=== PATIENT | male | born 1940 | race Caucasian/White ===

== ENCOUNTER 2017-06-07 10:57 | Inpatient (IN) | payer OTHER ==
[~2017-06-07] VITALS: Ht 165.1 cm; Wt 81.6 kg
[~2017-06-07 10:57] MED LIST: ASA81 MG; DIOVAN HCT 160-1 TAB; LIPITOR20 MG; OMEPRAZOLE20 MG; SYNTHROID175 MCG; TOPROL XL50 M1 PO; XALATAN; XANAX XR0.5 MG; XARELTO10 MG; ZYRTEC10 MG PO
[2017-06-07] MEDS ORDERED: PROTONIX40 MG (11:10)
[2017-06-07] MEDS ORDERED: LEVOTHYROXINE (11:14)
== END 2017-06-10 10:34 | disposition home or self-care (01) | DRG 390 ==
LOC: ER 10:57 → SURH 19:29 → SEC-K 19:29 → MEDJ 23:13 → SURH 06-08 01:52
PROC: 8E0ZXY6 Isolation (ICD-10-PCS; principal; 2017-06-07)
PROC: BW21Y0Z Computerized Tomography (CT Scan) of Abdomen and Pelvis using Other Contrast, Unenhanced and Enhanced (ICD-10-PCS; 2017-06-07)
DX: K56.690 Other partial intestinal obstruction (principal); K29.00 Acute gastritis without bleeding; I48.0 Paroxysmal atrial fibrillation; Z79.01 Long term (current) use of anticoagulants; K44.9 Diaphragmatic hernia without obstruction or gangrene; K21.9 Gastro-esophageal reflux disease without esophagitis; K52.89 Other specified noninfective gastroenteritis and colitis; I10 Essential (primary) hypertension

== ENCOUNTER → 2018-04-17 | Outpatient (CLI) | payer OTHER ==
[~2018-04-17] MED LIST changes: +LEVOTHYROXINE; +PROTONIX40 MG
== END | disposition home or self-care (01) ==
LOC: TOM 09:45
DX: C34.91 Malignant neoplasm of unspecified part of right bronchus or lung (principal); R10.9 Unspecified abdominal pain; J44.9 Chronic obstructive pulmonary disease, unspecified; D69.0 Allergic purpura

== ENCOUNTER → 2018-05-14 | Outpatient (CLI) | payer OTHER | END | disposition home or self-care (01) | LOC: NUCLEAR 09:00 | DX: D72.828 Other elevated white blood cell count (principal); C80.1 Malignant (primary) neoplasm, unspecified | CPT/HCPCS: 78816; 93880; A9552 ==

== ENCOUNTER → 2018-07-22 | Outpatient (CLI) | payer OTHER | END | disposition home or self-care (01) | LOC: MAMO-SONO 11:41 | DX: R10.84 Generalized abdominal pain (principal); N18.3 Chronic kidney disease, stage 3 (moderate); R31.29 Other microscopic hematuria ==

== ENCOUNTER 2019-01-20 15:20 | Emergency (ER) | payer OTHER ==
[~2019-01-20] VITALS: Ht 167.6 cm; Wt 81.6 kg
[2019-01-20] MEDS ORDERED: LOSARTAN POTASS50 MG PO (16:23)
== END 2019-01-20 21:50 | disposition home or self-care (01) ==
LOC: ER 15:20
DX: R10.12 Left upper quadrant pain (principal); R10.32 Left lower quadrant pain

== ENCOUNTER 2019-03-21 07:28 | Emergency (ER) | payer OTHER ==
[~2019-03-21] VITALS: Ht 167.6 cm; Wt 88.5 kg
[~2019-03-21 07:28] MED LIST changes: +LOSARTAN POTASS50 MG PO
[2019-03-21] MEDS ORDERED: TOPROL XL100 M1 PO (07:46)
[2019-03-21] MEDS ORDERED: ULORIC40 MG PO (07:47)
[2019-03-21] MEDS ORDERED: PREGNENOLONE5 GM MC (07:47)
[2019-03-21] MEDS ORDERED: PEPCID AC20 MG PO (10:51)
[2019-03-21] MEDS ORDERED: LEVSIN/SL0.125 MG SL (10:51)
== END 2019-03-21 11:25 | disposition home or self-care (01) ==
LOC: ER 07:28
DX: K29.70 Gastritis, unspecified, without bleeding (principal)

== ENCOUNTER 2019-03-27 10:35 | Outpatient (CLI) | payer OTHER ==
[~2019-03-27 10:35] MED LIST changes: +LEVSIN/SL0.125 MG SL; +PEPCID AC20 MG PO; +PREGNENOLONE5 GM MC; +TOPROL XL100 M1 PO; +ULORIC40 MG PO
== END 2019-03-27 10:36 | disposition home or self-care (01) ==
LOC: SONOGRAMA 10:35
DX: R10.84 Generalized abdominal pain (principal)

== ENCOUNTER 2019-04-03 09:44 | Outpatient (CLI) | payer OTHER | END 2019-04-03 10:51 | disposition home or self-care (01) | LOC: NUCLEAR 09:44 | DX: K80.18 Calculus of gallbladder with other cholecystitis without obstruction (principal) | CPT/HCPCS: 78227; A9537 ==

== ENCOUNTER 2020-09-24 15:19 | Outpatient (CLI) | payer OTHER | END 2020-09-24 15:24 | disposition home or self-care (01) | LOC: RAD 15:19 | DX: I11.9 Hypertensive heart disease without heart failure (principal); H02.60 Xanthelasma of unspecified eye, unspecified eyelid ==

== ENCOUNTER 2024-04-19 11:13 | Emergency (ER) | payer OTHER ==
[~2024-04-19] VITALS: Ht 165.1 cm; Wt 79.4 kg
[2024-04-19 12:53] LABS: HEMATOCRIT 32.6 % (39.0-48.0); MEAN CELL VOLUME 76.3 fL (80.0-100.00); MEAN CORPUSCULAR HEMOGLOBIN 23.5 pg (27.00-32.0); MEAN CORPUSCULAR HGB CONC 30.8 g/dl (32.0-36.0); PLATELET COUNT 313 K/uL (150-450); RED BLOOD COUNT 4.28 M/uL (4.00-6.00); RED CELL DISTRIBUTION WIDTH 21.7 % (11.5-14.5)
[2024-04-19 13:16] LABS: ALBUMIN 3.1 gm/dL (3.4-5.0); BILIRUBIN TOTAL 0.65 mg/dL (0.3-1.2); CALCIUM 10.2 mg/dL (8.5-10.1); CREATININE SERUM 1.6 mg/dL (0.70-1.30); GFR 41.29; GLOBULINA 3.9 G/DL (2.4-3.5); POTASSIUM 5.29 mEq/L (3.5-5.1)
[2024-04-19 13:18] LABS: INR 1.4; PROTHROMBIN TIME 14.9 SECONDS (9.0-11.5)
[2024-04-19 13:18] LABS: D DIMER 0.29 MG/L; PARTIAL THROMBOPLASTIN TIME 30.8 SECONDS (22.0-34.0)
== END 2024-04-19 14:00 | disposition home or self-care (01) ==
LOC: ER 11:13
PROVIDERS: General Practice
DX: I80.9 Phlebitis and thrombophlebitis of unspecified site (principal); Z88.0 Allergy status to penicillin; Z88.5 Allergy status to narcotic agent

== ENCOUNTER 2024-04-21 15:39 | Inpatient (IN) | payer OTHER ==
[~2024-04-21] VITALS: Ht 165.1 cm; Wt 88.5 kg
--- NOTE | 2024-04-21 15:55 | NUR ---
PTE ALERTA Y ORIENTADO X3, REFIERE VEINR POR DOLOR EN PIE IZQ. SE OBSERVA EL MISNMO UN POCO ENROJECIDO E INFLAMADO. SE BRYAN SV Y SE UBICA
--- NOTE | 2024-04-21 17:14 | NUR ---
NUZHAT ORIENTA PTE SOBRE TX MEDICO ORDENADO. REALIZA JP DE MUESTRAS DE LAB JOHN ORDEN MEDICA Y BAJO MEDIDAS ASEPTICAS. PTE PENDIENTE A RESULTADOS DE LAB.
[2024-04-21 17:33] LABS: HEMOGLOBIN 10.1 g/dL (13-16.00); MEAN CELL VOLUME 76.1 fL (80.0-100.00); MEAN CORPUSCULAR HEMOGLOBIN 23.4 pg (27.00-32.0); MEAN CORPUSCULAR HGB CONC 30.8 g/dl (32.0-36.0); PLATELET COUNT 309 K/uL (150-450); RED BLOOD COUNT 4.33 M/uL (4.00-6.00); RED CELL DISTRIBUTION WIDTH 21.5 % (11.5-14.5)
--- NOTE | 2024-04-21 20:51 | NUR ---
SE EXTRAEN MUESTRA BAJO MEDIDAS ASEPTICAS.
[2024-04-21 21:11] LABS: ALBUMIN 3.4 gm/dL (3.4-5.0); BILIRUBIN TOTAL 0.83 mg/dL (0.3-1.2); CALCIUM 9.7 mg/dL (8.5-10.1); CREATININE SERUM 1.49 mg/dL (0.70-1.30); GFR 44.82; GLOBULINA 4.2 G/DL (2.4-3.5); POTASSIUM 4.16 mEq/L (3.5-5.1); TOTAL PROTEIN 7.6 gm/dL (6.4-8.2)
[2024-04-21] MEDS ORDERED: CEFTRIAXONE SODIUM 2,000 MG VIAL IV ONE (21:30)
[2024-04-21] MEDS ORDERED: 0.9 % SODIUM CHLORIDE 1,000 ML IV SCH (22:45)
[2024-04-21] MEDS ORDERED: ACETAMINOPHEN 500 MG GEL..CAP PO PRN ×2 (22:45)
[2024-04-22 01:05] LABS: INR 1.25; PROTHROMBIN TIME 13.4 SECONDS (9.0-11.5)
[2024-04-22 01:07] LABS: D DIMER 0.2 MG/L; PARTIAL THROMBOPLASTIN TIME 28.3 SECONDS (22.0-34.0)
[2024-04-22] MEDS ORDERED: LEVOTHYROXINE SODIUM 112 MCG TABLET PO SCH (06:00)
[2024-04-22 06:10] VITALS: BP 136/78; O2SAT 97
[2024-04-22 08:19] VITALS: BP 128/78; O2SAT 95
[2024-04-22] MEDS ORDERED: RIVAROXABAN 15 MG TABLET PO SCH (09:00)
[2024-04-22] MEDS ORDERED: ATORVASTATIN CALCIUM 10 MG TABLET PO SCH (09:00)
[2024-04-22] MEDS ORDERED: METOPROLOL SUCCINATE 100 MG TAB.SR.24H PO SCH (09:00)
[2024-04-22] MEDS ORDERED: PREDNISONE 1 MG TABLET PO SCH (09:00)
[2024-04-22] MEDS ORDERED: levoFLOXacin IN DEXTROSE 5 % 100 ML IV SCH (09:00)
[2024-04-22] MEDS ORDERED: FAMOTIDINE/PF 20 MG in 0.9 % SODIUM CHLORIDE 8 ML IV PUSH SCH (09:00)
[2024-04-22 09:10] LABS: PH,URINE 5.5 (5.0-8.0); URINE APPEARANCE Clear; URINE BILIRRUBIN Negative (NEGATIVE); URINE BLOOD Negative; URINE COLOR Yellow; URINE GLUCOSE Negative (NEGATIVE); URINE KETONE Negative (NEGATIVE); URINE LEUKOCYTE Negative; URINE NITRATE Negative; URINE PROTEIN Negative (NEGATIVE); URINE UROBILINOGEN 0.2 E.U./dl
[2024-04-22 09:22] LABS: URINE BACTERIA 4.8 uL (0.0-1933); URINE EPITHELIAL CELLS 0.4 uL (0.0-38.8); URINE RBC 6.3 uL (0.0-20.8); URINE WBC 0.4 uL (0.0-23.2)
[2024-04-22 15:58] LABS: CALCIUM 9.7 mg/dL (8.5-10.1); CREATININE SERUM 1.42 mg/dL (0.70-1.30); GFR 47.38; POTASSIUM 4.09 mEq/L (3.5-5.1)
[2024-04-22] MEDS ORDERED: METOPROLOL SUCCINATE 50 MG TAB.SR.24H PO SCH (17:00)
[2024-04-22] MEDS ORDERED: ALPRAzolam 1 MG TABLET PO SCH (21:00)
[2024-04-23] MEDS ORDERED: ENOXAPARIN SODIUM 40 MG/0.4 ML SYRINGE SUBCUTANEO SCH (09:00)
== END 2024-04-22 16:28 | disposition home or self-care (01) | DRG 603 ==
LOC: ER 15:39 → MEDI 22:49 → MEDJ 22:49
PROVIDERS: General Practice; Preventive Medicine Public Health & General Preventive Medicine; ADMIT Student in an Organized Health Care Education/Training Program; ATTEND Student in an Organized Health Care Education/Training Program
PROC: B54DZZZ Ultrasonography of Bilateral Lower Extremity Veins (ICD-10-PCS; principal; 2024-04-21)
DX: L03.116 Cellulitis of left lower limb (principal)